=== PATIENT | male | born 1985 | race Caucasian/White ===

== ENCOUNTER 2019-09-13 15:50 | Emergency (ER) | payer OTHER ==
[~2019-09-13] VITALS: Ht 185.4 cm; Wt 93.0 kg
[2019-09-13 17:30] VITALS: BP 161/94
--- NOTE | 2019-09-13 19:57 | PHYS DOC ---
Past Medical History Past Medical History: GERD Additional Past Medical Histor: H pylori Past Surgical History: No Surgical History Smoking Status: Never Smoker Alcohol Use: Occasionally General Adult EDM: Chief Complaint: LOWER EXT PAIN HPI: HPI: Patient is a 33 year old male who presents with a two-week history of swelling in the legs right greater than left. Patient denies any trauma to the area. Patient states this started about 2 weeks ago after he had some tachycardia and high blood pressure after taking albuterol and went to urgent care. Patient den ies any shortness of breath or PND. Patient denies any fever or trauma to the area. Patient states that both legs are swollen but the right is more so than the left. Review of Systems: Review of Systems: Constitutional: Denies fever or chills. [] Eyes: Denies change in visual acuity. [] HENT: Denies nasal congestion or sore throat. [] Respiratory: Denies cough or shortness of breath. [] Cardiovascular: Denies chest pain but complains of swelling to the bilateral lower extremities right greater than left GI: Denies abdominal pain, nausea, vomiting, bloody stools or diarrhea. [] : Denies dysuria. [] Musculoskeletal: Denies back pain or joint pain. [] Integument: Denies rash. [] Neurologic: Denies headache, focal weakness or sensory changes. [] But has so me mild tingling in the right leg intermittently Endocrine: Denies polyuria or polydipsia. [] Lymphatic: Denies swollen glands. [] Psychiatric: Denies depression or anxiety. [] Heart Score: Risk Factors: Risk Factors: DM, Current or recent (<one month) smoker, HTN, HLP, family h istory of CAD, obesity. Risk Scores: Score 0 - 3: 2.5% MACE over next 6 weeks - Discharge Home Score 4 - 6: 20.3% MACE over next 6 weeks - Admit for Clinical Observation Score 7 - 10: 72.7% MACE over next 6 weeks - Early Invasive Strategies Allergies: Allergies: Allergies Coded Allergies Type Severity Reaction Last Updated Verified albuterol Adverse Reaction Intermediate 09/13/19 Yes Physical Exam: PE: Constitutional: Well developed, well nourished, no acute distress, non-toxic appearance. [] HENT: Normocephalic, atraumatic, bilateral external ears normal, nose normal. [] Eyes: PERRLA, EOMI, conjunctiva normal, no discharge. [] Neck: Normal range of motion, no tenderness, supple, no stridor. [] Cardiovascular:Heart rate regular rhythm, peripheral pulses intact Lungs & Thorax: No respiratory distress Abdomen: soft, no tenderness, no masses, no pulsatile masses. [] Skin: Warm, dry, no erythema, no rash. [] Back: No tenderness, no CVA tenderness. [] Extremities: No tenderness, no cyanosis, no clubbing, ROM intact, mild swelling to the bilateral lower extremities right greater than left Neurologic: Alert and oriented X 3, normal motor function, normal sensory fu nction, no focal deficits noted. [] Psychologic: Affect normal, judgement normal, mood normal. [] Current Patient Data: Labs: Laboratory Tests Test 09/13/19 20:14 White Blood Count 6.5 x10^3/uL Red Blood Count 5.44 x10^6/uL Hemoglobin 16.7 g/dL Hematocrit 46.5 % Mean Corpuscular Volume 85 fL Mean Corpuscular Hemoglobin 31 pg Mean Corpuscular Hemoglobin Concent 36 g/dL Red Cell Distribution Width 13.1 % Platelet Count 192 x10^3/uL Neutrophils (%) (Auto) 64 % Lymphocytes (%) (Auto) 28 % Monocytes (%) (Auto) 6 % Eosinophils (%) (Auto) 2 % Basophils (%) (Auto) 1 % Neutrophils # (Auto) 4.1 x10^3/uL Lymphocytes # (Auto) 1.8 x10^3/uL Monocytes # (Auto) 0.4 x10^3/uL Eosinophils # (Auto) 0.1 x10^3/uL Basophils # (Auto) 0.1 x10^3/uL Sodium Level 140 mmol/L Potassium Level 4.3 mmol/L Chloride Level 102 mmol/L Carbon Dioxide Level 31 mmol/L Anion Gap 7 Blood Urea Nitrogen 10 mg/dL Creatinine 0.9 mg/dL Estimated GFR (Cockcroft-Gault) 98.4 BUN/Creatinine Ratio 11 Glucose Level 99 mg/dL Calcium Level 9.4 mg/dL Total Bilirubin 0.9 mg/dL Aspartate Amino Transf (AST/SGOT) 23 U/L Alanine Aminotransferase (ALT/SGPT) 42 U/L Alkaline Phosphatase 65 U/L EU-Lao-H-Type Natriuretic Peptide 23 pg/mL Total Protein 7.8 g/dL Albumin 4.5 g/dL Albumin/Globulin Ratio 1.4 Vital Signs: Vital Signs Date Time Temp Pulse Resp B/P (MAP) Pulse Ox O2 Delivery O2 Flow Rate FiO2 09/13/19 17:30 98.3 91 16 161/94 (116) 98 Room Air 98.3 EKG: EKG: [] EKG interpreted by me normal sinus rhythm with a rate of 66 normal axis normal intervals normal ST segments Radiology/Procedures: Radiology/Procedures: [][facility] [address] [place] [address] IMAGING REPORT Signed PATIENT: ESTEFANIA ANAYA ACCOUNT: [id number] : 1985 LOCATION: ER AGE: 33 SEX: M EXAM STATUS: REG ER ORD. PHYSICIAN: ALESSANDRA SAEZ MD REASON: LE SWELLING. HX OF ASTHMA PROCEDURE: PORTABLE CHEST 1V Single view chest dated 09/13/2019: No comparison available. Clinical Indication: Lower extremity swelling. History of asthma. Findings: Single upright portable exam of the chest was performed. Heart size and mediastinal contours are within normal limits given technique. The lungs are clear without evidence of focal consolidation. Vascular interstitium is within normal limits. Impression:: Negative portable chest. Electronically signed by: Harpal Rao MD (09/13/2019 8:11 PM) [facility] [place] DICTATED and SIGNED BY: HARPAL RAO MD DATE: 09/13/192010 [facility] [address] [place], [place] [id number] IMAGING REPORT Signed PATIENT: ESTEFANIA ANAYA ACCOUNT: [id number] : 1985 LOCATION: ER AGE: 33 SEX: M EXAM STATUS: REG ER ORD. PHYSICIAN: ALESSANDRA SAEZ MD REASON: SWELLING PROCEDURE: VENOUS LOWER EXT BILATERAL Exam: Bilateral lower extremity venous duplex study INDICATION: Leg swelling TECHNIQUE: Using a combination of real-time ultrasound imaging and color-flow and pulse Doppler imaging techniques along with graded compression and augmentation, duplex evaluation of the deep venous systems of bilateral lower extremity was performed. Multiple images were obtained. Findings: There is no sonographic evidence for deep venous thrombosis involving the visualized deep venous structures of the bilateral lower extremity. IMPRESSION: No acute DVT in the bilateral lower extremities. Electronically signed by: Ifeanyi Weems MD (09/13/2019 8:55 PM) [id number] DICTATED and SIGNED BY: IFEANYI WEEMS MD DATE: 09/13/192054 Course & Med Decision Making: Course & Med Decision Making Pertinent Labs and Imaging studies reviewed. (See chart for details) [] 33-year-old male presents with bilateral leg pain with right greater than left. Work-up is negative for DVT, liver failure, renal failure, heart failure. Patient clinically stable for discharge and outpatient follow-up. Dragon Disclaimer: Dragon Disclaimer: This electronic medical record was generated, in whole or in part, using a voice recognition dictation system. Departure Departure Impression: Primary Impression: Pedal edema Additional Impression: Right leg pain Disposition: 01 HOME, SELF-CARE Condition: STABLE Referrals: NESS FELDER DO (PCP) 2-3 days Patient Instructions: Edema, Peripheral Edema Additional Instructions: EMERGENCY DEPARTMENT GENERAL DISCHARGE INSTRUCTIONS Thank you for coming to [facility] Emergency Department (ED) today and trusting us with you care. We trust that you had a positivie experience in our Emergency Department. If you wish to speak to the department management, you may call the Director at [phone]. YOUR FOLLOW UP INSTRUCTIONS ARE FOLLOWS: 1. Do you have a private Doctor? If you do not have a private doctor, please ask for a resource list of physicians or clinics that may be able to assist you with follow up care. 2. The Emergency Physicain has interpreted your x-rays. The X-Ray specialist will also review them. If there is a change in the findings, you will be notified in 48 hours when at all possible. 3. A lab test or culture has been done, your results will be reviewed and you will be notified if you need a change in treatment. ADDITIONAL INSTRUCTIONS AND INFORMATION: 1. Your care today has been supervised by a physician who is specially trained in emergency care. Many problems require more than one evaluation for a complete diagnosis and treatment. We recommend that you schedule your follow up appointment as recommended to ensure complete treatment of you illness or injury. If you are unable to obtain follow up care and continue to have a problem, or if your consition worsens, we recommend that you return to the ED. 2. We are not able to safely determine your condition over the phone nor are we able to give sound medical advice over the phone. For these safety reasons, if you call for medical advice we will ask you to come to the ED for further evaluation. 3. If you have any questions regarding these discharge instructions please call the ED at [phone]. SAFETY INFORMATION: In the interest of safety, wellness, and injury prevention; we encourage you to wear your sealbelt, if you smoke; quite smoking, and we encourage family to use a protective helmet for bicycling and other sporting events that present an increased risk for head injury. IF YOUR SYMPTOMS WORSEN OR NEW SYMPTOMS DEVELOP, OR YOU HAVE CONCERNS ABOUT YOUR CONDITION; OR IF YOUR CONDITION WORSENS WHILE YOU ARE WAITING FOR YOUR FOLLOW UP APPOINTMENT; EITHER CONTACT YOUR PRIMARY CARE DOCTOR, THE PHYSICIAN WHOSE NAME AND NUMBER YOU WERE GIVEN, OR RETURN TO THE ED IMMEDIATELY. Justicifation of Admission Dx: Justifications for Admission: Justification of Admission Dx: N/A ALESSANDRA SAEZ MD Sep 13, 2019 19:57
--- NOTE | 2019-09-13 20:14 | RAD ---
Single view chest dated 09/13/2019: No comparison available. Clinical Indication: Lower extremity swelling. History of asthma. Findings: Single upright portable exam of the chest was performed. Heart size and mediastinal contours are within normal limits given technique. The lungs are clear without evidence of focal consolidation. Vascular interstitium is within normal limits. Impression:: Negative portable chest. Electronically signed by: Harpal Rao MD (09/13/2019 8:11 PM) [facility]
[2019-09-13 20:22] LABS: BASO # 0.1 x10^3/uL (0.0-0.2); BASO % 1 % (0-3); EOS # 0.1 x10^3/uL (0.0-0.7); EOS % 2 % (0-3); HEMATOCRIT 46.5 % (39.0-53.0); HEMOGLOBIN 16.7 g/dL (13.0-17.5); LYMPH # 1.8 x10^3/uL (1.0-4.8); LYMPH % 28 % (24-48); MEAN CORPUSCULAR HEMOGLOBIN 31 pg (25-35); MEAN CORPUSCULAR HGB CONC 36 g/dL (31-37); MEAN CORPUSCULAR VOLUME 85 fL (79-100); MONO # 0.4 x10^3/uL (0.0-1.1); MONO % 6 % (0-9); NEUT # 4.1 x10^3/uL (1.8-7.7); NEUT % 64 % (31-73); PLATELET COUNT 192 x10^3/uL (140-400); RED BLOOD COUNT 5.44 x10^6/uL (4.30-5.70); RED CELL DISTRIBUTION WIDTH 13.1 % (11.5-14.5); WHITE BLOOD COUNT 6.5 x10^3/uL (4.0-11.0)
[2019-09-13 20:30] LABS: CALCIUM 9.4 mg/dL (8.5-10.1); CREATININE 0.9 mg/dL (0.7-1.3); GFR 98.4; POTASSIUM 4.3 mmol/L (3.5-5.1)
[2019-09-13 20:36] LABS: ALBUMIN 4.5 g/dL (3.4-5.0); ALBUMIN/GLOBULIN RATIO 1.4 (1.0-1.7); TOTAL BILIRUBIN 0.9 mg/dL (0.2-1.0); TOTAL PROTEIN 7.8 g/dL (6.4-8.2)
--- NOTE | 2019-09-13 20:58 | RAD ---
Exam: Bilateral lower extremity venous duplex study INDICATION: Leg swelling TECHNIQUE: Using a combination of real-time ultrasound imaging and color-flow and pulse Doppler imaging techniques along with graded compression and augmentation, duplex evaluation of the deep venous systems of bilateral lower extremity was performed. Multiple images were obtained. Findings: There is no sonographic evidence for deep venous thrombosis involving the visualized deep venous structures of the bilateral lower extremity. IMPRESSION: No acute DVT in the bilateral lower extremities. Electronically signed by: Ifeanyi Caballero MD (09/13/2019 8:55 PM) [id number]
--- NOTE | 2019-09-14 07:16 | EKG ---
[facility] [address] [place] [address] Test Date: 2019-09-13 Test Time: 20:02:41 Pat Name: ESTEFANIA ANAYA Department: Room: Gender: M Senior Vice President: : 1985 Requested By: ALESSANDRA SAEZ Order Number: [id number] Reading MD: Measurements Intervals [place] Rate: 66 P: 34 IA: 174 QRS: 3 QRSD: 88 T: 47 QT: 376 QTc: 396 Interpretive Statements SINUS RHYTHM NORMAL ECG RI6.02 No previous ECG available for comparison
== END 2019-09-13 21:24 | disposition home or self-care (01) ==
LOC: ER 15:50
DX: R60.0 Localized edema (principal); M79.604 Pain in right leg; R00.0 Tachycardia, unspecified; R03.0 Elevated blood-pressure reading, without diagnosis of hypertension; K21.9 Gastro-esophageal reflux disease without esophagitis; J45.909 Unspecified asthma, uncomplicated; Z88.8 Allergy status to other drugs, medicaments and biological substances
CPT/HCPCS: 36415; 71045; 80053; 83880; 85025; 93005; 93970; 99285-25